=== PATIENT | male | born 1980 | race Caucasian/White ===

== ENCOUNTER 2020-06-03 22:13 | Emergency (ER) | payer OTHER ==
[2020-06-03] MEDS ORDERED: methylPREDNISolone Sodium Succinate 125 MG/2 ML SDV IVPUSH ONE (22:41)
--- NOTE | 2020-06-03 22:50 | EDM.PDOC ---
ED HPI GENERAL MEDICAL PROBLEM - General Chief Complaint: Allergic Reaction Stated Complaint: BUG BITE Time Seen by Provider: 06/03/20 22:30 Source of Information: Reports: Patient, Family History Limitations: Reports: No Limitations - History of Present Illness INITIAL COMMENTS - FREE TEXT/NARRATIVE: 40-year-old male got bit by deer flies in several places earlier today including the left groin, the left hand, the legs and now is having diffuse itching, and actual has edema of the penis and testicles. He is concerned about a systemic allergic reaction. No pulmonary symptoms, no shortness of breath or mucosal swelling. He has not had past reactions. He is otherwise healthy. Onset: Gradual Duration: Hour(s): (Symptoms have developed over the last 8 to 10 hours) left groin Pain Score (Numeric/FACES): 5 - Related Data Allergies Allergy/AdvReac Type Severity Reaction Status Date / Time No Known Allergies Allergy Verified 06/03/20 22:35 Home Meds: Home Meds NK [No Known Home Meds] 06/03/20 [History] ED ROS ALLERGIC REACTION - Review of Systems Review Of Systems: See Below Constitutional: Reports: Malaise. Denies: Fever, Chills HEENT: Denies: Eye Discharge, Eye Pain, Throat Pain, Vision Change Respiratory: Denies: Shortness of Breath, Wheezing Cardiovascular: Denies: Chest Pain GI/Abdominal: Denies: Abdominal Pain, Nausea, Vomiting Skin: Reports: Pruritis, Rash, Erythema Neurological: Reports: Dizziness. Denies: Headache Psychiatric: Reports: No Symptoms ED EXAM GENERAL NO PERIP PULSE - Physical Exam Exam: See Below Exam Limited By: No Limitations General Appearance: Alert, No Apparent Distress Eye Exam: Bilateral Eye: Normal Inspection Ears: Other (The helix of both ears are slightly erythematous but not significantly swollen or urticarial) Throat/Mouth: Normal Inspection Head: Atraumatic Respiratory/Chest: No Respiratory Distress, Lungs Clear Cardiovascular: Regular Rate, Rhythm Rectal (Males) Exam: Other (Patient does have diffuse edema through the penis and scrotum, no erythema or warmth) Skin Exam: Warm, Dry, Other (There are scattered erythematous macular areas where he was bitten earlier by deer flies, one in the left groin, one in the right forearm and one on the thigh) Course - Vital Signs Last Recorded V/S: Last Vital Signs Temp 98.0 F 06/03/20 22:35 Pulse 100 06/03/20 22:35 Resp 16 06/03/20 22:35 BP 129/85 06/03/20 22:35 Pulse Ox 96 06/03/20 22:35 - Orders/Labs/Meds Meds: Medications Discontinued Medications Generic Name Dose Route Start Last Admin Trade Name Darrell PRN Reason Stop Dose Admin Methylprednisolone Sodium Succinate 125 mg 06/03/20 22:41 06/03/20 22:52 Solu-Medrol IVPUSH 06/03/20 22:42 125 mg ONETIME ONE Administration - Re-Assessments/Exams Free Text/Narrative Re-Assessment/Exam: 06/03/20 22:48 An IV was started and the patient was given 125 mg of IV Solu-Medrol. He will continue with oral Benadryl 50 mg every 4-6 hours and I also gave him prednisone to take 50 mg daily for the next 1 to 5 days. He can return anytime if worsening despite treatment, and I encouraged aggressive use of insect repellent. Departure - Departure Time of Disposition: 23:00 Disposition: Home, Self-Care 01 Clinical Impression: Insect bites and stings Qualifiers: Encounter type: initial encounter Qualified Code(s): W57.XXXA - Bitten or stung by nonvenomous insect and other nonvenomous arthropods, initial encounter - Discharge Information Instructions: Insect Bite, Adult Referrals: PCP,None [Primary Care Provider] - Forms: ED Department Discharge Care Plan Goals: Take 5 pills of prednisone with your first meal each morning for the next 2 to 6 days. Continue with Benadryl 50 mg every 4-6 hours, and use insect spray aggressively to avoid further bites. Return anytime if you feel you are worsening or develop other concerns. Sepsis Event Note (ED) - Evaluation Sepsis Screening Result: No Definite Risk - Focused Exam Vital Signs: Vital Signs Temp Pulse Resp BP Pulse Ox 06/03/20 22:35 98.0 F 100 16 129/85 96 06/03/20 22:28 98.0 F 100 16 129/85 96
== END 2020-06-03 23:20 | disposition home or self-care (01) ==
LOC: JP.ED 22:13
DX: S50.861A Insect bite (nonvenomous) of right forearm, initial encounter (principal); S70.369A Insect bite (nonvenomous), unspecified thigh, initial encounter; S30.861A Insect bite (nonvenomous) of abdominal wall, initial encounter; W57.XXXA Bitten or stung by nonvenomous insect and other nonvenomous arthropods, initial encounter
CPT/HCPCS: 96374; 99282; J2930